=== PATIENT | male | born 1950 | race Caucasian/White ===

== ENCOUNTER → 2016-12-27 | Outpatient (CLI) | payer MEDICARE, OTHER | END | disposition home or self-care (01) | LOC: LABWHC1 16:26 | PROVIDERS: ATTEND Internal Medicine Cardiovascular Disease | DX: R00.2 Palpitations (principal) | CPT/HCPCS: 36415; 84443 ==

== ENCOUNTER → 2017-12-17 | Outpatient (CLI) | payer MEDICARE, OTHER ==
[2017-12-17 11:41] LABS: ALT 58 U/L (21-72); AST 30 U/L (17-59); Cholesterol 136 mg/dL (<200); HDL Cholesterol 54 mg/dL (40-60); LDL Cholesterol,Calculated 51 mg/dL (0-99); Triglycerides 154 mg/dL (<150)
== END | disposition home or self-care (01) ==
LOC: LABWHC1 11:07
PROVIDERS: ATTEND Internal Medicine Cardiovascular Disease
DX: E78.2 Mixed hyperlipidemia (principal)
CPT/HCPCS: 36415; 80061; 84450; 84460

== ENCOUNTER → 2018-04-12 | Outpatient (CLI) | payer MEDICARE, OTHER ==
--- NOTE | 2018-04-12 14:35 | CT ---
EXAMINATION TYPE: CT chest w con DATE OF EXAM: 04/12/2018 COMPARISON: 04/11/2017 HISTORY: Pericardial cyst CT DLP: 611 mGycm Automated exposure control for dose reduction was used. CONTRAST: 100 cc Isovue-300 FINDINGS: LUNGS: The lungs are grossly clear, there is no concerning parenchymal mass or nodule identified. T here is no pleural effusion or pneumothorax seen. The tracheobronchial tree is patent. MEDIASTINUM: There are no greater than 1 cm hilar or mediastinal lymph nodes. No pericardial effusi on is seen. There is a 6 and a 7 mm density within the right cardiophrenic angle likely related to s mall shotty adenopathy. Suggestion of coronary artery calcification or stenting correlate clinically. There is a prominent pericardial fat pad. OTHER: Hypertrophic and degenerative change of the spine.. Calcification near the dome of the liver. IMPRESSION: 1. There is no evidence of a pericardial cyst. There are 2 small less than 1 cm hypodensities in the right cardiophrenic angle which likely related to small lymph nodes area. There is a prominent perica rdial fat pad.
== END | disposition home or self-care (01) ==
LOC: RADCTMAIN 13:07
PROVIDERS: ATTEND Internal Medicine
DX: E65 Localized adiposity (principal)
CPT/HCPCS: 82565; 84520; 71260; Q9967

== ENCOUNTER → 2018-06-06 | Outpatient (CLI) | payer MEDICARE, OTHER ==
[2018-06-06 11:18] LABS: ALT 50 U/L (21-72); AST 24 U/L (17-59); Cholesterol 118 mg/dL (<200); HDL Cholesterol 47 mg/dL (40-60); LDL Cholesterol,Calculated 50 mg/dL (0-99); Triglycerides 105 mg/dL (<150)
== END | disposition home or self-care (01) ==
LOC: LABWHC1 10:39
PROVIDERS: ATTEND Internal Medicine Cardiovascular Disease
DX: E78.2 Mixed hyperlipidemia (principal)
CPT/HCPCS: 36415; 80061; 84450; 84460

== ENCOUNTER → 2018-09-01 | Outpatient (CLI) | payer MEDICARE, OTHER ==
--- NOTE | 2018-09-01 08:16 | US ---
EXAMINATION TYPE: US gallbladder DATE OF EXAM: 09/01/2018 COMPARISON: NONE CLINICAL HISTORY: RUQ ABD PAIN R10.11, R11.0 NAUSEA. EXAM MEASUREMENTS: Liver Length: 17.1 cm Gallbladder Wall: 0.1 cm CHD: 0.4 cm Right Kidney: 10.0 x 5.2 x 4.8 cm Pancreas: Limited visualization, portions seen appears unremarkable Liver: wnl Gallbladder: Echogenic focus with shadow measuring 1.8 cm Evidence for sonographic Montano's sign: neg CBD: Obscured by overlying bowel gas CHD: wnl Right Kidney: wnl IMPRESSION: Cholelithiasis with a 1.8 cm gallstone. No sonographic evidence of acute cholecystitis.
== END ==
LOC: RADUSWWP 06:53
PROVIDERS: ATTEND Internal Medicine
DX: K80.20 Calculus of gallbladder without cholecystitis without obstruction (principal)
CPT/HCPCS: 76705

== ENCOUNTER → 2018-10-06 | Day surgery (SDC) | payer MEDICARE, OTHER ==
[2018-10-04 11:47] VITALS: BMI 32.8
[~2018-10-06] MED LIST: BUPIVACAIN-EPI 0.5%-1:200,000 30 ML VIAL SQ ONE; DEXAMETHASONE SOD PHOSPHATE 10 MG/ML 1 ML VIAL IV ONE; GLYCOPYRROLATE 0.2 MG/ML 2 ML VIAL ONE; KETOROLAC 30 MG/ML 1 ML VIAL IVP ONE; LACTATED RINGERS 1,000 ML IV ONE; LACTATED RINGERS 1,000 ML IV SCH; LIDOCAINE 1% INJ 10MG/ML (20 ML MDV) ONE; MIDAZOLAM (PF) 2 MG/2 ML VIAL IV PRN; MIDAZOLAM 2 MG/2 ML VIAL ONE; MORPHINE SULFATE 10 MG/ML SYRINGE ONE; NEOSTIGMINE 1 MG/ML 10 ML VIAL ONE; ONDANSETRON 4 MG/2 ML VIAL IVP ONE; PROPOFOL 10 MG/ML 20 ML VIAL IV ONE; Pre Op ABX Message 1 EACH MISC MISCELLANE ONE; ROCURONIUM BROMIDE 10 MG/ML 10 ML VIAL IV ONE; SCOPOLAMINE 1.5MG/72HR PATCH TRANSDERM ONE; SUCCINYLCHOLINE CHLORIDE 100 MG/5 ML SYR IV ONE; fentaNYL (PF) 50 MCG/ML 2 ML AMP ONE; traMADol 50 MG TAB PO ONE
[2018-10-06 11:55] LABS: Glucose,Whole Blood 147 mg/dL (75-99)
[2018-10-06 12:28] LABS: Basophils % (A) 0 %; Eosinophils # (A) 0.2 k/uL (0-0.7); Eosinophils % (A) 2 %; HCT 41.7 % (39.0-53.0); Lymphocytes # (A) 1.2 k/uL (1.0-4.8); Lymphocytes % (A) 16 %; MCH 29.5 pg (25.0-35.0); MCHC 33.5 g/dL (31.0-37.0); Mean Platelet Volume 5.8; Monocytes # (A) 0.4 k/uL (0-1.0); Monocytes % (A) 6 %; Neutrophils # (A) 5.6 k/uL (1.3-7.7); Neutrophils % (A) 74 %; Platelet Count 227 k/uL (150-450); RBC 4.74 m/uL (4.30-5.90); RDW 13.5 % (11.5-15.5); WBC 7.6 k/uL (3.8-10.6)
[2018-10-06 12:38] LABS: Anion Gap 8 mmol/L; Blood Urea Nitrogen 20 mg/dL (9-20); Calcium 9.4 mg/dL (8.4-10.2); Carbon Dioxide 22 mmol/L (22-30); Chloride 109 mmol/L (98-107); Glucose 150 mg/dL (74-99); Sodium 139 mmol/L (137-145)
[2018-10-06 12:43] LABS: Potassium 5.2 mmol/L (3.5-5.1)
--- NOTE | 2018-10-06 14:11 | P.OP ---
Date of Procedure: 10/06/18 Preoperative Diagnosis: Abdominal pain, cholelithiasis Postoperative Diagnosis: Abdominal pain, cholelithiasis Procedure(s) Performed: Laparoscopic cholecystectomy Anesthesia: ROSHAN Surgeon: Deirdre Souza Pathology: other (Gallbladder) Condition: stable Disposition: PACU Indications for Procedure: The patient presented with abdominal pain presented with abdominal pain. He was found to have cholelithiasis. Description of Procedure: The patient's taken the operative suite where he is prepped and draped in the usual sterile manner under general endotracheal anesthetic. A supraumbilical incision was made as his abdominal cavity is fairly long. A Veress needle is placed into the abdominal cavity and pneumoperitoneum was established with CO2 gas. Sites are chosen for accessory trochars needs are placed through small skin incisions. The abdominal and pelvic contents were examined and were unremarkable. The gallbladder is then grasped and retracted towards the anterior abdominal wall. López's pouch is identified. Its grasped and retracted laterally. The cystic artery and cystic duct are dissected free. They're triply clipped and cut. The gallbladder is then dissected free from the liver bed. Small bleeding points were controlled with electrocautery. The gallbladder is placed into a specimen retrieval bag and removed through the umbilical port site. The liver bed is reexamined and noted be hemostatic. The excess irrigant was suctioned out. The pneumoperitoneum was released. The trochars were removed. The fascia at the umbilicus was closed with 0 Vicryl. The skin incisions were closed with 4-0 Vicryl in a subcuticular manner. Steri- Strips and dressings were applied. He tolerated the procedure without difficulty and was taken recovery room in satisfactory condition. According to or personnel, all counts were correct. Plan - Discharge Summary Discharge Rx Participant: Yes New Discharge Prescriptions: New traMADol HCL [Ultram] 50 - 100 mg PO Q4HR PRN 3 Days #20 tab PRN Reason: Pain No Action Omeprazole 20 mg PO HS sitaGLIPtin PHOS/metFORMIN HCL [Janumet 50-500 mg Tablet] 1 tab PO BID Ibuprofen [Motrin] 400 cap PO DAILY Atorvastatin [Lipitor] 80 mg PO HS #90 tab Lisinopril [Zestril] 5 mg PO DAILY #90 tab Nitroglycerin Sl Tabs [Nitrostat] 0.4 mg SUBLINGUAL Q5M PRN #100 tab PRN Reason: Chest Pain Aspirin [Adult Low Dose Aspirin EC] 81 mg PO DAILY Meloxicam 7.5 mg PO BID Discharge Medication List Ibuprofen [Motrin] 400 cap PO DAILY 03/19/16 [History] Omeprazole 20 mg PO HS 03/19/16 [History] sitaGLIPtin PHOS/metFORMIN HCL [Janumet 50-500 mg Tablet] 1 tab PO BID 03/19/16 [History] Atorvastatin [Lipitor] 80 mg PO HS #90 tab 03/20/16 [Rx] Lisinopril [Zestril] 5 mg PO DAILY #90 tab 03/20/16 [Rx] Nitroglycerin Sl Tabs [Nitrostat] 0.4 mg SUBLINGUAL Q5M PRN #100 tab 03/20/16 [ Rx] Aspirin [Adult Low Dose Aspirin EC] 81 mg PO DAILY 10/04/18 [History] Meloxicam 7.5 mg PO BID 10/04/18 [History] traMADol HCL [Ultram] 50 - 100 mg PO Q4HR PRN 3 Days #20 tab 10/06/18 [Rx] Follow up Appointment(s)/Referral(s): Deirdre Souza DO [Doctor of Osteopathic Medicine] - 2 Weeks Activity/Diet/Wound Care/Special Instructions: Ice to the incisions 24 hours. Keep the Band-Aids on until Tuesday. The Band- Aids may be removed at that time and you may shower. No tub baths for 1 week. Expect some bruising by the bellybutton incision. Follow a low-fat diet. No driving while taking pain medication. You could take Tylenol or Motrin in addition to or instead of the pain pills. Call if you develop fevers, chills, nausea, vomiting, wound concerns. Make a follow-up appointment for about 2 weeks. Discharge Disposition: HOME SELF-CARE
[2018-10-06] MEDS: HYDROmorphone 0.5 MG/0.5 ML SYRINGE IVP PRN ×4 (14:31→14:50)
[2018-10-06 14:49] VITALS: TEMP 97.3
[2018-10-06 15:00] VITALS: RESP 16
[2018-10-06 15:18] LABS: Glucose,Whole Blood 187 mg/dL (75-99)
[2018-10-06 16:08] VITALS: BP 98/63; PULSE 58
== END | disposition home or self-care (01) ==
LOC: OR 11:00
PROVIDERS: ATTEND Surgery
DX: K80.10 Calculus of gallbladder with chronic cholecystitis without obstruction (principal); R00.1 Bradycardia, unspecified; I10 Essential (primary) hypertension; E78.5 Hyperlipidemia, unspecified; I25.10 Atherosclerotic heart disease of native coronary artery without angina pectoris; M19.90 Unspecified osteoarthritis, unspecified site; E11.36 Type 2 diabetes mellitus with diabetic cataract; K64.9 Unspecified hemorrhoids; Z79.1 Long term (current) use of non-steroidal anti-inflammatories (NSAID); Z79.82 Long term (current) use of aspirin; Z79.899 Other long term (current) drug therapy; Z88.8 Allergy status to other drugs, medicaments and biological substances; Z92.84 Personal history of unintended awareness under general anesthesia; Z77.090 Contact with and (suspected) exposure to asbestos
CPT/HCPCS: 93005; 88304; 80048; 85025; 47562; J2250; J1100; J2710; J2270; J2405; J2001; J3010; J1885; J0330; J2704; J1170

== ENCOUNTER → 2018-11-02 | Outpatient (CLI) | payer MEDICARE | END | disposition home or self-care (01) | LOC: LABWHC1 15:54 | PROVIDERS: ATTEND Podiatrist Foot & Ankle Surgery | DX: Z01.812 Encounter for preprocedural laboratory examination (principal); N18.9 Chronic kidney disease, unspecified | CPT/HCPCS: 36415; 82565; 84520 ==

== ENCOUNTER → 2020-03-15 | Outpatient (CLI) | payer MEDICARE ==
--- NOTE | 2020-03-17 07:31 | CT ---
EXAMINATION TYPE: CT iac wo con DATE OF EXAM: 03/15/2020 COMPARISON: None INDICATION: Tinnitus; hearing loss DLP: 150 mGycm, Automated exposure control for dose reduction was used. CONTRAST: None CT of the internal auditory canals is performed at 1 mm thick sections. Study is performed without in travenous contrast which will cause some limitation for smaller acoustic schwannoma identification. FINDINGS: Fluid-filled mastoid air cells are present on the left. Correlate for left mastoiditis. No septal destruction is identified. Internal auditory canals appear normal without expansion or erosion. Semicircular canals are normal. Cochlea are normal. Small amount of increased density is adjacent to the left tympanic membrane. Flui d or soft tissue should be considered. Otitis media could be considered. There may be some soft tissu e density at the left tympanic membrane. Fluid from mastoiditis and otitis media could be considered. Follow-up is recommended. Cholesteatoma is not excluded at this time. No destruction is identified. The incus and malleus appear normal. External auditory canals appear normal. The attics are clear. S cutum are normal. Cerebellar pontine angles appear normal. Portion of the brain included within the [id number] is un remarkable. There is some mucosal thickening within the bilateral maxillary sinuses. Paranasal sinuse s are otherwise clear. Right septal deviation is noted. Ostiomeatal units are patent. IMPRESSIONS: 1. Left mastoiditis. 2. Minimal otitis media is not excluded. 3. There may be some soft tissue density at the left tympanic membrane. Fluid from mastoiditis and ot itis media could be considered. Follow-up is recommended. Cholesteatoma is not excluded at this time.
== END | disposition home or self-care (01) ==
LOC: RADCTMAIN 13:41
PROVIDERS: ATTEND Otolaryngology
DX: H70.92 Unspecified mastoiditis, left ear (principal); H91.90 Unspecified hearing loss, unspecified ear
CPT/HCPCS: 70480

== ENCOUNTER → 2021-01-13 | Outpatient (CLI) | payer MEDICARE ==
[2021-01-13 19:29] LABS: Basophils # (A) 0.03 X 10*3/uL (0.00-0.10); Basophils % (A) 0.3 %; Eosinophils # (A) 0.15 X 10*3/uL (0.04-0.35); Eosinophils % (A) 1.6 %; HCT 40.5 % (39.6-50.0); HGB 13.5 g/dL (13.0-17.0); Lymphocytes # (A) 1.48 X 10*3/uL (0.90-5.00); Lymphocytes % (A) 15.5 %; MCH 30.4 pg (27.0-32.0); MCHC 33.3 g/dL (32.0-37.0); MCV 91.2 fL (80.0-97.0); Mean Platelet Volume 9.9 fL (9.5-12.2); Monocytes # (A) 0.76 X 10*3/uL (0.20-1.00); Neutrophils # (A) 7.09 X 10*3/uL (1.80-7.70); Neutrophils % (A) 74.2 %; Platelet Count 228 X 10*3/uL (140-440); RBC 4.44 X 10*6/uL (4.40-5.60); RDW 13.2 % (11.5-14.5); WBC 9.55 X 10*3/uL (4.50-10.00)
[2021-01-13 20:08] LABS: Erythrocyte Sedimentation Rate 7 mm/Hr (0-20)
[2021-01-14 00:20] LABS: C Reactive Protein <0.4 mg/dL (0.0-0.8); Rheumatoid Factor, Qnt 8 IU/mL (0-15)
== END | disposition home or self-care (01) ==
LOC: LABWHC1 14:19
PROVIDERS: ATTEND Podiatrist Foot & Ankle Surgery
DX: M13.879 Other specified arthritis, unspecified ankle and foot (principal); B99.9 Unspecified infectious disease
CPT/HCPCS: 36415; 84550; 85025; 85652; 86038; 86140; 86431

== ENCOUNTER → 2021-03-25 | Outpatient (CLI) | payer MEDICARE ==
[2021-03-25 19:47] LABS: HCT 39.9 % (39.6-50.0); HGB 13.4 g/dL (13.0-17.0); MCH 30.9 pg (27.0-32.0); MCHC 33.6 g/dL (32.0-37.0); MCV 91.9 fL (80.0-97.0); Mean Platelet Volume 9.9 fL (9.5-12.2); Platelet Count 218 X 10*3/uL (140-440); RBC 4.34 X 10*6/uL (4.40-5.60); RDW 12.8 % (11.5-14.5); WBC 8.42 X 10*3/uL (4.50-10.00)
[2021-03-26 01:09] LABS: African American GFR (CKD) 53.1 (60.0-200.0); Anion Gap 9.4 mmol/L (4.00-12.00); Calcium 9.5 mg/dL (8.7-10.3); Carbon Dioxide 23.6 mmol/L (21.6-31.8); Chol/HDL Ratio 2.79; LDL Cholesterol,Calculated 47.6 mg/dL (0.0-131.0); Non-African American GFR(CKD) 45.9 (60.0-200.0); Potassium 5.2 mmol/L (3.5-5.5); VLDL Calculation 27.4 mg/dL (5.00-40.00)
== END | disposition home or self-care (01) ==
LOC: LABWHC1 12:10
PROVIDERS: ATTEND Internal Medicine Cardiovascular Disease
DX: E78.2 Mixed hyperlipidemia (principal)
CPT/HCPCS: 36415; 80048; 80061; 84443; 84450; 84460; 85027

== ENCOUNTER → 2021-09-15 | Outpatient (CLI) | payer MEDICARE ==
--- NOTE | 2021-09-15 18:02 | BD ---
EXAMINATION TYPE: Axial Bone Density DATE OF EXAM: 09/15/2021 COMPARISON: NONE CLINICAL HISTORY: Postmenopausal screening Height: 64 IN Weight: 215 LBS FRAX RISK QUESTIONS: Family History (Parent hip fracture): YES MOTHER RISK FACTORS HISTORY OF: Active: YES Lost more than 2 inches in height since high school: YES 3" MEDICATIONS: Additional Medications: VIT D, ATORVASTATIN, JANUMET, OMEPRAZOLE, LISINOPRIL, CLINDAMYCIN, AZELASTINE , ALLEZ, RYBELSUS, BILBERRY, B COMPLEX, ASPIRIN, OCUVITE, ANDERS, IBUPROFEN, VIT C, FISH OIL, GLUCOS AMINE EXAM MEASUREMENTS: Bone mineral densitometry was performed using the Digital Reasoning System. Bone mineral density as measured about the Lumbar spine is: ----- L1-L4(G/cm2): 1.291 T Score Values are as follows: ----- L2: 0.6 ----- L3: 1.7 ----- L4: 1.3 ----- L1-L4: 0.9 Bone mineral density BASELINE Bone mineral density about the R hip (g/cm2): 0.908 Bone mineral density about the L hip (g/cm2): 0.926 T Score values are as follows: -----R Neck: -0.9 -----L Neck: -0.8 -----R Total: 0.4 -----L Total: 0.6 Bone mineral density BASELINE IMPRESSION: Normal (Values between +1 and -1 indicate normal bone mass). Note that measurements are approaching o steopenia at the right hip. Consider repeating this study in 5 years or sooner if there is some new c linical indication. NOTE: T-SCORE=SD OF THE YOUNG ADULT MEAN.
== END | disposition home or self-care (01) ==
LOC: RADBDWWP 16:01
PROVIDERS: ATTEND Internal Medicine
DX: Z13.820 Encounter for screening for osteoporosis (principal)
CPT/HCPCS: 77080

== ENCOUNTER → 2023-10-17 | Outpatient (CLI) | payer MEDICARE ==
[2023-10-17 15:52] LABS: HCT 41.7 % (39.6-50.0); HGB 13.9 g/dL (13.0-17.0); MCH 31.2 pg (27.0-32.0); MCHC 33.3 g/dL (32.0-37.0); MCV 93.5 FL (80.0-97.0); Mean Platelet Volume 9.5 FL (9.5-12.2); NRBC Per 100 WBC 0 X 10*3/uL (0.00-0.01); Platelet Count 209 X 10*3/uL (140-440); RBC 4.46 X 10*6/uL (4.40-5.60); RDW 13.2 % (11.5-14.5)
[2023-10-17 16:11] LABS: ALT 44 U/L (10-49); AST 24 U/L (14-35); BUN/Creat Ratio 15.69 Ratio (12.00-20.00); Blood Urea Nitrogen 25.1 mg/dL (9.0-27.0); Carbon Dioxide 26.1 mmol/L (21.6-31.8); Chloride 103 mmol/L (96-109); Chol/HDL Ratio 2.34 Ratio; Glucose 140 mg/dL (70-110); Potassium 4.5 mmol/L (3.5-5.5); Sodium 140 mmol/L (135-145)
== END | disposition home or self-care (01) ==
LOC: LABWHC1 09:12
PROVIDERS: ATTEND Internal Medicine Cardiovascular Disease
DX: E78.2 Mixed hyperlipidemia (principal)
CPT/HCPCS: 36415; 80048; 80061; 84443; 84450; 84460; 85027

== ENCOUNTER 2024-03-30 11:24 | Emergency (ER) | payer MEDICARE ==
[2024-03-30] MEDS ORDERED: SODIUM CHLORIDE 0.9% 1,000 ML BAG ONE (11:50)
== END 2024-03-30 15:25 | disposition home or self-care (01) ==
LOC: EC 11:24
DX: K92.2 Gastrointestinal hemorrhage, unspecified (principal)
CPT/HCPCS: 99284

== ENCOUNTER → 2024-05-01 | Day surgery (SDC) | payer MEDICARE ==
[2024-04-25 13:29] VITALS: BMI 31.9
[~2024-05-01] MED LIST changes: -BUPIVACAIN-EPI 0.5%-1:200,000 30 ML VIAL SQ ONE; -DEXAMETHASONE SOD PHOSPHATE 10 MG/ML 1 ML VIAL IV ONE; -GLYCOPYRROLATE 0.2 MG/ML 2 ML VIAL ONE; -KETOROLAC 30 MG/ML 1 ML VIAL IVP ONE; -LACTATED RINGERS 1,000 ML IV ONE; -LACTATED RINGERS 1,000 ML IV SCH; +LIDOCAINE 1% (10MG/ML) FOR IV START INTRADERMA PRN; -MIDAZOLAM (PF) 2 MG/2 ML VIAL IV PRN; -MIDAZOLAM 2 MG/2 ML VIAL ONE; -MORPHINE SULFATE 10 MG/ML SYRINGE ONE; -NEOSTIGMINE 1 MG/ML 10 ML VIAL ONE; -ONDANSETRON 4 MG/2 ML VIAL IVP ONE; -Pre Op ABX Message 1 EACH MISC MISCELLANE ONE; -ROCURONIUM BROMIDE 10 MG/ML 10 ML VIAL IV ONE; -SCOPOLAMINE 1.5MG/72HR PATCH TRANSDERM ONE; -SUCCINYLCHOLINE CHLORIDE 100 MG/5 ML SYR IV ONE; -fentaNYL (PF) 50 MCG/ML 2 ML AMP ONE; -traMADol 50 MG TAB PO ONE
[2024-05-01] MEDS: IV FLUID CONTINUATION 1,000 ML IV ONE (07:28)
[2024-05-01 07:39] VITALS: TEMP 97.3
[2024-05-01] MEDS: LACTATED RINGERS 1,000 ML IV SCH (07:55)
[2024-05-01 07:56] LABS: Glucose,Whole Blood 119 mg/dL (70-110)
--- NOTE | 2024-05-01 09:17 | P.PCN ---
Date of Procedure: 05/01/24 Procedure(s) Performed: Brief history: Patient is a pleasant 73-year-old white male scheduled for an elective upper endoscopy as well as colonoscopy as a part of evaluation of intermittent black tarry stools and screening for colon cancer. His father was diagnosed with colon cancer at age 80. Procedure performed: Esophagogastroduodenoscopy with biopsy Colonoscopy with snare polypectomy Preoperative diagnosis: Melena Screening for colon cancer/family history of colon cancer Anesthesia: MAC Procedure: After informed consent was obtained from the patient was brought into the endoscopy unit and IV sedation was administered by anesthesia under continuous monitoring. Initially upper endoscopy was done. The Olympus GF 160 video endoscope was inserted inserted into the mouth and esophagus intubated without any difficulty and was gradually advanced into the stomach and duodenum and carefully examined. The bulb and second part of the duodenum appeared normal. The scope was then withdrawn into the stomach adequately insufflated with air and upon careful examination the antrum had mild gastritis and biopsies were done for this area. Mucosa of the body, cardia and fundus appeared normal. The scope was then withdrawn into the esophagus. Small hiatal hernia noted. The GE junction was located at 40 cm to the incisors. It appeared regular with no erythema erosions or ulcerations. Rest of the esophagus appeared normal. Patient tolerated the procedure well. At this time the patient continued to remain sedation. Initial digital rectal examination was normal. Olympus CF 160 video colonoscope was then inserted into the rectum and gradually advanced to the cecum without any difficulty. Careful examination was performed as the scope was gradually being withdrawn. The prep was excellent. The cecum, appeared normal. The ascending colon there was a 2.5 cm broad-based polyp that was removed by piecemeal snare polypectomy and complete polypectomy accomplished. Rest of the ascending colon, transverse colon, descending colon, sigmoid colon and rectum appeared normal. Scattered sigmoid diverticulosis retroflexion was performed in the rectum and no lesions were noted. Patient tolerated the procedure well. Impression: 1. Upper endoscopy revealed small hiatal hernia and mild antral gastritis 2. Colonoscopy revealed 2.5 cm broad-based ascending colon polyp status post piecemeal snare polypectomy and scattered sigmoid diverticulosis Recommendations: Findings of this examination were discussed with the patient as well as his family. He was advised to follow-up with the biopsy results. If the biopsy reveals adenoma he can have repeat colonoscopy in 3 years
[2024-05-01 09:24] VITALS: RESP 16
[2024-05-01 09:48] VITALS: BP 126/71; PULSE 62
== END ==
LOC: ORWHC2ENDO 07:18
PROVIDERS: ATTEND Internal Medicine Gastroenterology
DX: Z12.11 Encounter for screening for malignant neoplasm of colon (principal); K57.30 Diverticulosis of large intestine without perforation or abscess without bleeding; K44.9 Diaphragmatic hernia without obstruction or gangrene; K29.50 Unspecified chronic gastritis without bleeding; D12.2 Benign neoplasm of ascending colon; Z80.0 Family history of malignant neoplasm of digestive organs
CPT/HCPCS: 43239; 45385; 88305